=== PATIENT | female | born 1990 | race Two or more races ===

== ENCOUNTER 2019-01-12 06:42 | Inpatient (IN) ==
[2019-01-12] MEDS ORDERED: D5 LR 1000 ML 1,000 ML ONE (07:06)
[2019-01-12] MEDS ORDERED: PITOCIN IVP ONE (07:14)
[2019-01-12] MEDS ORDERED: NUBAIN INJ 200 MG VIAL MULTIDOSE IVP PRN (07:14)
[2019-01-12] MEDS ORDERED: D5LR 1L W PITOCIN 10 UNITS/L 10 UNITS/1,000 ML BAG IV PRN (07:14)
[2019-01-12 07:49] LABS: BASOPHILS # (AUTO) 0.1 X10^3/uL (0.0-0.1); BASOPHILS % (AUTO) 0.7 % (0.2-1.0); EOSINOPHILS # (AUTO) 0.1 x10^3/uL (0.0-0.2); EOSINOPHILS % (AUTO) 1.1 % (0.9-2.9); HEMATOCRIT 31.5 % (36.0-47.0); HEMOGLOBIN 10.6 g/dL (12.0-16.0); LYMPHOCYTES # (AUTO) 2.3 X10^3/uL (1.3-2.9); LYMPHOCYTES % (AUTO) 19.5 % (21.0-51.0); MEAN CORPUSCULAR HEMOGLOBIN 26.3 pg (27.0-34.0); MEAN CORPUSCULAR HGB CONC 33.5 g/dL (33.0-35.0); MEAN CORPUSCULAR VOLUME 78.5 fL (80.0-100.0); MEAN PLATELET VOLUME 9.3 fL (7.4-11.0); MONOCYTES # (AUTO) 0.9 x10^3/uL (0.3-0.8); MONOCYTES % (AUTO) 7.9 % (0.0-13.0); NEUTROPHILS # (AUTO) 8.4 x10^3/uL (2.2-4.8); NEUTROPHILS % (AUTO) 70.8 % (42.0-75.0); PLATELET COUNT 232 X10^3/uL (150.0-450.0); RED BLOOD COUNT 4.02 X10^6/uL (3.5-5.4); RED CELL DISTRIBUTION WIDTH 16.2 % (11.6-16.5); WHITE BLOOD COUNT 11.9 X10^3/uL (3.6-10.0)
[2019-01-12 07:50] LABS: BILIRUBIN,URINE NEGATIVE (NEGATIVE); BLOOD/HEMOGLOBIN,URINE 1+ (NEGATIVE); GLUCOSE, URINE NEGATIVE (NEGATIVE); KETONES,URINE NEGATIVE (NEGATIVE); LEUKOCYTE ESTERASE ,URINE 1+ (NEGATIVE); NITRITES,URINE NEGATIVE (NEGATIVE); PROTEIN,URINE 1+ (NEGATIVE); UROBILINOGEN,URINE NORMAL (NORMAL)
[2019-01-12 07:53] LABS: BLOOD UREA NITROGEN 7 mg/dL (7-18); CALCIUM 8.6 mg/dL (8.5-10.1); CARBON DIOXIDE 22.3 mmol/L (21-32); CHLORIDE 104 mmol/L (98-107); CREATININE 0.53 mg/dL (0.55-1.02); SODIUM 136 mmol/L (136-145); eGFR NON BLACK RACES > 60 (>60)
[2019-01-12 07:59] LABS: APPEARANCE,URINE SLIGHTLY HAZY (CLEAR); BACTERIA,URINE TRACE /HPF (NEGATIVE); COLOR,URINE YELLOW (YELLOW); RBC,URINE 0-2 /HPF (NONE SEEN); SQUAMOUS EPITHELIAL CELL,UR MODERATE /HPF (NEGATIVE)
[2019-01-12] MEDS ORDERED: D5 1/2 NS 1000 ML 1,000 ML IV SCH (08:00)
[2019-01-12] MEDS ORDERED: AMPICILLIN VIAL 2 GRAM 2 G in NS 100 ML IV + SPIKE MINIBAG* 100 ML IV SCH (08:00)
[2019-01-12] MEDS ORDERED: PITOCIN ONE (08:03)
[2019-01-12] MEDS ORDERED: D5 1/2 NS 1000 ML 1,000 ML ONE (08:03)
[2019-01-12] MEDS ORDERED: D5LR 1L W PITOCIN 10 UNITS/L 10 UNITS/1,000 ML BAG IV ONE (08:03)
[2019-01-12] MEDS ORDERED: D5 1/2 NS 1L W PITOCIN 20 UNITS/L 20 UNITS/1,000 ML BAG IV ONE ×2 (08:03→08:37)
[2019-01-12] MEDS ORDERED: NS 100 ML IV 100 ML ONE (08:04)
[2019-01-12] MEDS ORDERED: AMPICILLIN VIAL 2 GRAM ONE (08:04)
[2019-01-12] MEDS ORDERED: LR 1000 ML IV 1,000 ML ONE (08:36)
[2019-01-12] MEDS ORDERED: DILAUDID INJ ONE (08:37)
[2019-01-12] MEDS ORDERED: ANCEF 1 GRAM IV PREMIX* 1 G/50 ML BAG IV ONE (08:51)
[2019-01-12] MEDS ORDERED: PHENERGAN INJ 25 MG IM PRN (10:21)
[2019-01-12] MEDS ORDERED: ZOFRAN INJ 4 MG VIAL IVP PRN ×3 (10:21→10:52)
[2019-01-12] MEDS ORDERED: BENADRYL INJ 50 MG VIAL IVP PRN (10:21)
[2019-01-12] MEDS ORDERED: REGLAN INJ 10 MG VIAL IVP PRN ×3 (10:21→10:52)
[2019-01-12] MEDS ORDERED: PERCOCET TAB 5/325 MG PO PRN ×2 (10:22→10:52)
[2019-01-12] MEDS ORDERED: NARCAN INJ IVP PRN ×2 (10:22→10:52)
[2019-01-12] MEDS ORDERED: D5 1/2 NS 1000 ML 1,000 ML with PITOCIN 20 UNITS IV SCH ×2 (11:00)
[2019-01-12] MEDS ORDERED: AMPICILLIN VIAL 1 GRAM 1 G in NS 50 ML IV + SPIKE MINIBAG* 50 ML IV SCH (11:16)
[2019-01-12] MEDS ORDERED: EPHEDRINE SULFATE INJ ONE (15:18)
[2019-01-12] MEDS ORDERED: ZOFRAN INJ 4 MG VIAL ONE (15:18)
[2019-01-12] MEDS ORDERED: XYLOCAINE 1 % (PLAIN) ONE (15:18)
[2019-01-12] MEDS ORDERED: REGLAN INJ 10 MG VIAL ONE (15:18)
[2019-01-12] MEDS: MOTRIN TAB 800 MG PO PRN (21:03)
[2019-01-12] MEDS: MYLICON TAB 80 MG CHEW PO PRN (21:03)
[2019-01-12] MEDS: ZANTAC PO SCH (21:03)
[2019-01-13 05:17] LABS: HEMATOCRIT 27.9 % (36.0-47.0); HEMOGLOBIN 9.3 g/dL (12.0-16.0)
[2019-01-13] MEDS: PRENATAL PLUS PO SCH (08:15)
[2019-01-13] MEDS: ZANTAC PO SCH ×2 (08:15→21:02)
[2019-01-13] MEDS ORDERED: NS 100 ML IV 100 ML with VENOFER 200 MG IV NR ×2 (10:00)
[2019-01-13] MEDS: MOTRIN TAB 800 MG PO PRN (17:40)
[2019-01-13] MEDS: MYLICON TAB 80 MG CHEW PO PRN (21:02)
[2019-01-14] MEDS: PRENATAL PLUS PO SCH (08:37)
[2019-01-14] MEDS: ZANTAC PO SCH (08:37)
[2019-01-14 10:12] VITALS: BP 105/64
== END 2019-01-14 11:50 | disposition home or self-care (01) | DRG 788 ==
LOC: LD 06:48 → MED/SURG 10:38
PROVIDERS: ADMIT Obstetrics & Gynecology Obstetrics; ATTEND Obstetrics & Gynecology Obstetrics
DX: O34.211 Maternal care for low transverse scar from previous cesarean delivery; Z3A.39 39 weeks gestation of pregnancy; Z37.0 Single live birth; N85.8 Other specified noninflammatory disorders of uterus
CPT/HCPCS: 36415; 80048; 81001; 85014; 85018; 85025; 86592; 86850; 86900; 86901; A4216; A4222; S0197; J0290; J0690; J1170; J1756; J2405; J2590; J2765; J3490; J7050; J7120; J7121; S5010